=== PATIENT | female | born 1995 | race Two or more races ===

== ENCOUNTER 2024-11-25 20:34 | Emergency (ER) | payer MEDICAID, SELFPAY ==
[2024-11-25 20:36] VITALS: BMI 54.8
[2024-11-25 21:05] VITALS: BP 115/79; PULSE 107; RESP 18; TEMP 37.7; O2SAT 96
--- NOTE | 2024-11-25 22:13 | EDNOTE_ITS ---
<Statement entered by Hilary Gomez MD - 11/26/24 23:29> As co-signing physician, I was present and available for consult prn. I concur with the plan and care as documented by the midlevel provider. ED Skin Abcess FB-RME/HPI General Chief complaint: Skin/Abscess/Foreign Body Stated complaint: ABSCESS TO RIGHT LOWER ABD AREA Time Seen by Provider: 11/25/24 22:12 Arrival date/time: 11/25/24 20:34 RME / HPI RME / HPI narrative: 29-year-old female patient came in for evaluation regarding redness and swelling, right lower abdomen has been ongoing for several days getting worse, denies any fever denies any vomiting denies any other complaints no medications taken prior to ER visit. Related Data Previous Rx's ?Medication ?Instructions ?Recorded clindamycin HCl 300 mg capsule 300 mg PO Q6H #28 caps 11/25/24 ibuprofen 800 mg tablet 800 mg PO Q8H PRN pain #30 t abs 11/25/24 Allergies Allergy/AdvReac Type Severity Reaction Status Date / Time No Known Allergies Allergy Verified 11/25/24 20:35 Review of Systems Review of Systems Narrative Review of Systems: Review of system reviewed and within normal limits except mentioned in HPI ED Exam Narrative Physical exam: VITAL SIGNS: Reviewed. GENERAL APPEARANCE: Alert and interactive, follows commands, no acute distress, HEAD AND FACE: Non-traumatic. ENT: PERRL, pink conjunctivitis, eyelid no trauma, Mucous membrane moist. ABDOMEN: Soft, positive bowel sounds, nondistended, no guarding, +3x3 cm swelling, fluctuant, redness, right lower abdomen with tenderness, no rebound, no masses, RECTAL: Deferred. GENITAL: Deferred. NEUROLOGICAL: Gross motor function intact sensory function intact, Appropriate for age. MUSCULOSKELETAL: low back nontender, full range of motion. EXTREMITIES: Nontender, full range of motion. SKIN: Color pink, dry, no rash, no lacerations, no abrasions, no contusions. LYMPHATICS: Deferred. Course Quality Measures none Orders Category Date Time Status Incision and Drainage Set Up X1 Care 11/25/24 21:20 Active Clindamycin [Cleocin] Med 11/25/24 22:12 Discontinued 300 mg PO X1 ONE Ketorolac Inj [Toradol Inj] Med 11/25/24 22:12 Discontinued 30 mg IM X1 ONE Vital Signs Vital signs: Vital Signs Temperature 99.8 F 11/25/24 21:05 Pulse Rate 107 H 11/25/24 21:05 Respiratory Rate 18 11/25/24 21:05 Blood Pressure 115/79 11/25/24 21:05 Pulse Oximetry (%) 96 11/25/24 21:05 Oxygen Delivery Method Room Air 11/25/24 21:05 PROCEDURES: Abscess I/D Site: other (Abdominal wall, lower right) Sedation/analgesia: none Local Anesthetic: lidocaine 1% Amount of anesthesia used (mL): 10 Technique: incised with #11 blade Amount of fluid expressed (mL): 10 Irrigation: Yes Packing used?: plain Complications: pain Skin / Abscess / Foreign Body MDM Narrative MDM Narrative:: 29-year-old female patient came in for evaluation regarding redness and swelling, right lower abdomen has been ongoing for several days getting worse, denies any fever denies any vomiting denies any other complaints no medications taken prior to ER visit. Incision and drainage was done by me see procedure notes. Patient received clindamycin and Toradol IM in the emergency room. Patient tolerated procedure well Patient data External records reviewed:: None Clinical information provided by:: patient Social determinants that could affect healthcare access:: none Patient has the following chronic illnesses:: None How is presenting disease/condition affected by chronic disease/condition?: no chronic disease Evaluation data The following diagnostics were reviewed and interpreted by me:: other (specify) Lab and/or radiology exams considered but not ordered:: None Interpretation Summary: None Medications / Prescriptions Medications or Prescriptions considered but not ordered:: None Medication administrations:: Medication Administration History Discontinued Medications Clindamycin HCl (Clindamycin 150 Mg Capsule) 300 mg PO X1 ONE Stop: 11/25/24 22:13 Last Admin: 11/25/24 22:51 Dose: 300 mg Documented By: Ketorolac Tromethamine (Ketorolac Inj 60 Mg/2 Ml Vial) 30 mg IM X1 ONE Stop: 11/25/24 22:13 Last Admin: 11/25/24 22:39 Dose: 30 mg Documented By: Toradol clindamycin Consultations Consultation(s) initiated? (list below): No Diagnosis Skin/Abscess Differential Diagnosis: abscess of skin or subcutaneous tissue and other (Abdominal wall abscess) Most likely diagnosis given after review of the tests above:: none Admission Indicated Admission indicated?: not indicated Admission Request Was there a request for admission?: No Disposition Plan Disposition Plan: Discharge Discharge Attestation Discharge Attestation: The patient and all family members were given an opportunity to ask questions and understood the discharge instructions. Discharge instructions specifically effects, indications for sooner follow up or return to the emergency department, and the expected course of current diagnosis. Patient condition: Stable Discharge Plan Plan Patient Disposition: HOME (Self Care) Discharge Disposition comment: Stable Prescriptions/Referrals Prescriptions/Med Rec: New clindamycin HCl 300 mg capsule 300 mg PO Q6H Qty: 28 0RF ibuprofen 800 mg tablet 800 mg PO Q8H PRN (Reason: pain) Qty: 30 0RF Referrals: Phil Burton MD [Primary Care Provider] - In 1 week Problem List Clinical Impression: Abdominal wall abscess Patient/Caregiver Discharge Instructions Discharge Activity: activity as tolerated Education Materials: ED Abscess, Incision And Drainage Additional Instructions: Thank you for the opportunity for serving you today. You are stable for discharged . You are advised to: Follow-up with your PCP in 1 to 2 days Return to ED for worsening of symptoms Increase oral fluids Take medication as prescribed Change top dressing only on a daily basis, mobilize your packing at least 1 cm every day and removed totally the packing in 5 days Print Language: Frisian Stand Alone Forms: Gina Award Info., Patient Portal Info Letter BEATRIZ/KIMMY Supervising Physician BEATRIZ/KIMMY Supervising Physician: MD Nirav
[2024-11-25] MEDS: KETOROLAC INJ 60 MG/2 ML VIAL 30 MG IM (22:39)
[2024-11-25] MEDS: CLINDAMYCIN 150 MG CAPSULE 300 MG PO (22:51)
== END 2024-11-25 23:31 | disposition home or self-care (01) ==
PROVIDERS: Emergency Provider Emergency Medicine; PCP Family Medicine
DX: L02.211 Cutaneous abscess of abdominal wall (principal)
CPT/HCPCS: 10060; 96372; 99283; J1885; A9270